=== PATIENT | male | born 1970 | race Caucasian/White ===

== ENCOUNTER 2020-06-02 11:26 | Outpatient (CLI) | payer OTHER, BC, SELFPAY ==
--- NOTE | ~2020-06-02 | XR_ITS ---
XR thoracic spine 2V DATE: 06/02/2020 12:11 INDICATION: Thoracic spine pain TECHNIQUE: AP, lateral, swimmer views COMPARISON: None FINDINGS: There is minimal thoracic scoliosis. No fracture or dislocation or bone destruction. The th oracic pedicles are intact. Thoracic interspaces and vertebral endplates are preserved. No paraspinal soft tissue thickening. IMPRESSION: Minimal scoliosis Reviewed, dictated and finalized at location A. OPATHIC RESIDENT IMPRESSION: Minimal scoliosis
== END 2020-06-02 11:27 | disposition home or self-care (01) ==
LOC: ANHIMG 11:38
PROVIDERS: PCP Family Medicine; Visit Provider Family Medicine
DX: M54.6 Pain in thoracic spine (principal)
CPT/HCPCS: 72070

== ENCOUNTER → 2021-07-24 00:32 | Outpatient (CLI) | payer BC, SELFPAY ==
[2021-07-24 12:02] LABS: SARS-CoV-2 RNA PCR Negative
== END ==
PROVIDERS: PCP Family Medicine; Visit Provider Internal Medicine Gastroenterology
DX: Z01.812 Encounter for preprocedural laboratory examination (principal); Z20.822 Contact with and (suspected) exposure to COVID-19
CPT/HCPCS: C9803; U0003; U0005

== ENCOUNTER 2021-07-27 00:23 | Day surgery (SDC) | payer BC, SELFPAY ==
[2021-04-25 15:47] VITALS: BMI 26.8
[2021-07-12 13:26] VITALS: BMI 26.8
[2021-07-27 06:54] VITALS: BP 114/73; PULSE 97; RESP 17; TEMP 36.7; O2SAT 98
[2021-07-27] MEDS: LACTATED RINGERS 1,000 ML 150 ML IV CONT (07:05)
--- NOTE | 2021-07-27 08:04 | P.PNAN_ITS ---
Anes - Initial Pre Proc Eval Procedure: Operation Date: 07/27/21 08:00 Proposed Procedures p Screening Colonoscopy - Ollie Padilla MD Date/Time: 07/27/21 08:04 Surgeon: Ollie Padilla MD Pre Op Diagnosis: neoplasm screening Patient Data Age: 50 Gender: M Height: 1.73 m Weight: 74.2 kg Last Vital Signs Temp 98.0 F 07/27/21 06:54 Pulse 97 07/27/21 06:54 Resp 17 07/27/21 06:54 BP 114/73 07/27/21 06:54 Pulse Ox 98 07/27/21 06:54 Allergies Allergy/AdvReac Type Severity Reaction Status Date / Time No Known Allergies Allergy Verified 07/27/21 06:53 Home Medications Medication Instructions Recorded Confirmed Type fluticasone propionate 44 2 inh INHALATION BID PRN #10.6 g 04/10/21 07/12/21 Rx mcg/actuation HFA aerosol inhaler Patient hx anesthesia problems: none Family hx anesthesia problems: none Results Review: All pre-operative results and documents have been reviewed as pa rt of the pre-operative evaluation. FOR[facility]LY [facility], [facility] Past Medical History Medical History Chronic back pain Lumbosacral spondylosis with radiculopathy Tobacco dependence due to cigarettes Family History Family History Mother Family history of premature coronary heart disease Father Family history of diabetes mellitus in first degree relative Sibling Family history of diabetes mellitus in first degree relative Social History Social History (Updated 05/22/21 @ 13:56 by Charity Sanchez) Social History: Smoking packs per day: 1.5 Smoking cigarettes per day: 30.0 Years smoked: 30 Smoking pack-years: 45.00 Smoking status: Current every day smoker Tobacco type: cigarettes Second hand tobacco smoke exposure: No Alcohol intake: former Substance use: never Substance use type: does not use Living arrangements: with family Gender identity (if verbalized by the patient): Male Sexual Orientation (if Verbalized by the Patient): Straight or Heterosexual Spiritual care concerns: No Anes - Eval Final PreProcedure Day of Procedure 07/27/21 08:04 Patient weight: normal Heart: regular rate and rhythm Lungs: clear to auscultation Airway: Mallampati scale class II Neurological: alert and oriented Last oral intake: >/= 8 hours ASA classification: II Emergent: no Anesthetic plan: proceed Anesthesia type and monitoring: general GIVS and standard monitoring Results Review: All pre-operative results and documents have been reviewed as part of the pre-operative evaluation. Informed Consent: The patient's anesthetic plan and its attendant risks and benefits were discussed with the patient/family/POA. Questions were solicited and answers provided to the satisfaction of the patient/family/POA.
--- NOTE | 2021-07-27 08:19 | PM.HPGS ---
History of Present Illness History of Present Illness Consent: Risks, benefits, and alternatives have been discussed and questions answered. Patient agrees to proceed with procedure. Chief complaint: neoplasm screening Narrative: Messi Gary is a 50 year old male with first screening colonoscopy Review of Systems Constitutional: Constitutional: Denies headache(s) and Denies weakness Eyes: Eyes: Denies blurry vision ENT: Reports Normal hearing present, Denies headache(s) and Denies neck pain Cardiovascular: Cardiovascular: Denies chest pain and Denies dyspnea Respiratory: Respiratory: Denies dyspnea Gastrointestinal: Gastrointestinal: Reports no additional gastrointestinal complaints Genitourinary: Genitourinary: Denies dysuria Musculoskeletal: Musculoskeletal: Denies neck pain Integumentary/Breasts: Skin/Breast: Denies dry skin Neurologic: Reports Normal hearing present, Denies headache(s) and Denies weakness Psychiatric: Psychiatric: Denies anxiety Endocrine: Endocrine: Denies change in body appearance Hematologic/Lymphatic: Hematologic/Lymphatic: Denies easy bleeding Allergic/Immunologic: Allergic/Immunologic: Denies urticaria PMF Past Medical History Medical History Chronic back pain Lumbosacral spondylosis with radiculopathy Tobacco dependence due to cigarettes Family History Family History Mother Family history of premature coronary heart disease Father Family history of diabetes mellitus in first degree relative Sibling Family history of diabetes mellitus in first degree relative Social History Social History (Updated 05/22/21 @ 13:56 by Charity Sanchez) Social History: Smoking packs per day: 1.5 Smoking cigarettes per day: 30.0 Years smoked: 30 Smoking pack-years: 45.00 Smoking status: Current every day smoker Tobacco type: cigarettes Second hand tobacco smoke exposure: No Alcohol intake: former Substance use: never Substance use type: does not use Living arrangements: with family Gender identity (if verbalized by the patient): Male Sexual Orientation (if Verbalized by the Patient): Straight or Heterosexual Spiritual care concerns: No Meds Home Medications and Allergies Home Medications Medication Instructions Recorded Confirmed Type fluticasone propionate 44 2 inh INHALATION BID PRN #10.6 g 04/10/21 07/12/21 Rx mcg/actuation HFA aerosol inhaler Allergies Allergy/AdvReac Type Severity Reaction Status Date / Time No Known Allergies Allergy Verified 07/27/21 06:53 Vital Signs Vital Signs - 24 hr 07/27/21 06:54 Temperature 98.0 F Pulse Rate 97 Respiratory Rate 17 Blood Pressure 114/73 Pulse Oximetry 98 Exam Const: General: comfortable and no acute distress HENMT: General nose exam: Normal nares present Eyes: General: appearance normal, both eyes and all related structures Neck: Neck: no JVD Resp: Auscultation: clear to auscultation bilaterally Cardio: Rate: regular rate Rhythm: regular rhythm GI: Inspection: non-distended GI Palp: Yes Soft to palpation Skin: General skin exam: normal color Neuro: General: gait normal Speech: normal speech Extrem: General: normal to inspection Psych: Mental Status: mental status grossly normal Assessment and Plan Assessment and plan (1) Colon cancer screening: Code(s): Z12.11 - Encounter for screening for malignant neoplasm of colon Status: Acute Assessment and Plan: colonoscopy
[2021-07-27 08:34] VITALS: BP 97/79; PULSE 85; RESP 19; O2SAT 94
[2021-07-27 08:44] VITALS: BP 100/77; PULSE 87; RESP 17; O2SAT 97
[2021-07-27 08:54] VITALS: BP 117/96; PULSE 73; RESP 15; O2SAT 97
== END 2021-07-27 09:07 | disposition home or self-care (01) ==
PROVIDERS: PCP Family Medicine; Visit Provider Internal Medicine Gastroenterology
PROC: 0DJD8ZZ Inspection of Lower Intestinal Tract, Via Natural or Artificial Opening Endoscopic (ICD-10-PCS; CPT 45378; principal; 2021-07-27 08:00)
DX: Z12.11 Encounter for screening for malignant neoplasm of colon (principal); K64.8 Other hemorrhoids; F17.210 Nicotine dependence, cigarettes, uncomplicated
CPT/HCPCS: 45378; C9803; J2704; J7120; U0003; U0005

== ENCOUNTER 2021-09-24 03:09 | Day surgery (SDC) | payer BC, SELFPAY ==
[2021-09-14 12:03] VITALS: BMI 24.7
--- NOTE | 2021-09-14 12:10 | PC.NURSE ---
Report to the Outpatient Waiting Room, entrance under the green pavilion located off [facility], at time 1330 on date 09/24/21. OR Time: 1430. - You and your visitor will be asked a series of questions to screen for COVID 19 for your protection. - Only one visitor is allowed at this time. - The patient visitor is requested to leave or wait in car when not with patient. - A mask is required within the hospital. MAY HAVE LIGHT BREAKFAST/LUNCH DAY OF SURGERY. Take the following medications with a SIP of water the morning of surgery: PRESCRIBED Medications to discontinue per physician: N/A Date to take last dose: N/A Please no make-up, nail scottish, hairspray, perfume, deodorant, or body powder the day of surgery. No jewelry (including any body piercings) or valuables the day of surgery, leave them at home. Please take a shower or bath the night before, or the morning of, surgery with an antibacterial soap. Wear comfortable, loose fitting clothing. - Jewelry must be removed prior to entering the operating room. Rings and piercings that are not removed may be cut off. - The hospital will not accept responsibility for valuables. - Please leave all valuables, including medications, at home the day of surgery. YOU MAY DRIVE YOURSELF HOME. Follow any additional instructions given to you from your surgeon. If you or anyone in your household have experienced Covid symptoms in the past week, please notify your surgeon or the nurse liaison at the phone number below for possible testing. Telephone instructions given to PT - FLORI THURMAN and asked if any additional questions and then verbalized understanding. Patient advised to call surgeon office or pre surgery nurse liaison [phone] if any additional questions.
[2021-09-24] VITALS (8 sets, daily range): BP systolic 103–137; BP diastolic 61–87; PULSE 68–87; RESP 16–18; TEMP 36.9; O2SAT 98–100
--- NOTE | 2021-09-24 14:02 | WPDHPUPDATE1 ---
History and Physical Update Update Date/Time: 09/24/21 14:02 History and Physical has been reviewed, including an updated exam of the patient. There are NO changes in the patient's condition. Risks, benefits, and alternatives have been discussed and questions answered. Patient agrees to proceed with procedure.
[2021-09-24] MEDS: LIDO 1%/EPINEPHRINE/PF 1:200,000 30 ML VIAL XX (15:11)
--- NOTE | 2021-09-24 15:27 | W.PM.PROC2 ---
Procedure Note - Detailed Date of Procedure 09/24/21 Pre-op Diagnosis Right forearm mass x3, left forearm mass x2 Post-op Diagnosis Same Procedure Performed 1. Excision of 3.5 cm, 3 cm, and 1.5 cm right forearm masses 2. Excision of 2 cm and 1.8 cm left forearm masses Surgeon Johnathon English, DO Anesthesia Local (1% lidocaine with epinephrine) Indications This is a 51-year-old man who presented with multiple masses on his arms. These have grown slowly over time and do cause some occasional discomfort when he is putting pressure on them. He denies any redness or drainage. All the masses appeared to be subcutaneous soft tissue masses consistent with lipomas. Discussion was made with the patient about treatment options and decision was made to proceed with excision right forearm mass x3 and left forearm mass x2. Findings All of the masses were excised with separate incisions. Patient was found to have a 3.5 cm, 3 cm, and 1.5 cm mass on the right forearm. He was also found to have a 2.0 cm and 1.8 cm mass on the left forearm. All masses were completely excised intact and sent to the lab for pathology. Subcuticular closure was then performed followed by glue. Description of Procedure Procedure as well as risks, benefits, and alternatives were discussed with the patient. Written consent was obtained and placed in chart prior to procedure. Patient was brought back to surgical suite. He was placed supine operating table. His bilateral arm regions were prepped and draped in sterile fashion using chlorhexidine prep. 1% lidocaine with epinephrine was infiltrated locally over each of the masses. A 3.5 cm incision was made over the right forearm mass using a 15 blade scalpel. Electrocautery was used for hemostasis and for dissection of the mass free from the subcutaneous attachments. The mass was completely excised intact and sent to the lab for pathology. The skin edges were then reapproximated using 4-0 Monocryl subcuticular suture. A 3 cm incision was then made over the 2nd right forearm mass and electrocautery was used to excise the mass completely intact. The skin edges were then reapproximated using 4-0 Monocryl subcuticular suture. A 1.5 cm incision was then made over the 3rd right forearm mass and electrocautery was used to completely excise the mass intact. The skin edges were approximated using 4-0 Monocryl subcuticular suture. Exofin glue was then applied over each of the right forearm incisions. I then moved my attention over to the left forearm. A 2 cm incision was made directly over the left forearm mass using a 15 blade scalpel. Electrocautery was used for hemostasis and for excision of the mass completely intact. Mass was sent to the for pathology. The skin edges were then reapproximated using 4-0 Monocryl subcuticular suture. A 1.8 cm incision was then made over the 2nd left forearm mass and electrocautery was used to excise the mass completely intact. The skin edges were then reapproximated using 4-0 Monocryl running subcuticular suture. Exofin glue was then applied over each of the incisions. No other abnormalities were noted and all masses were completely excised. The patient was then transferred to recovery. Estimated Blood Loss 5 Pathology Yes (Right forearm mass x3, left forearm mass x2) Complications No immediate complications Condition Stable Disposition Same day [facility] Billing Surgery - Charge Forward: Surgery Billing
== END 2021-09-24 15:55 | disposition home or self-care (01) ==
PROVIDERS: PCP Family Medicine; Visit Provider Surgery
PROC: (CPT 25071; principal; 2021-09-24 14:30)
DX: R22.33 Localized swelling, mass and lump, upper limb, bilateral (principal); F17.200 Nicotine dependence, unspecified, uncomplicated
CPT/HCPCS: 25071; 88304; A9270

== ENCOUNTER 2021-12-24 15:24 | Outpatient (CLI) | payer BC, SELFPAY ==
--- NOTE | ~2021-12-24 | XR_ITS ---
XR lumbar spine 2-3V DATE: 12/24/2021 16:00 INDICATION: Back pain with radiculopathy. Lumbosacral surgery at L3-L5 in 2020 TECHNIQUE: AP, lateral and coned lateral lumbosacral views COMPARISON: None FINDINGS: Status post anterior and interbody spinal fusion at L3-L5. There is minimal grade 1 anterolisthesis at L4-5. L1-2, L2-3 and L5-S1 interspaces appear well preserved. No fracture or bone destruction is evident. The sacroiliac joints are intact. IMPRESSION: Status post anterior and interbody spinal fusion at L3-L5 Reviewed, dictated and finalized at location B.
--- NOTE | ~2021-12-24 | XR_ITS ---
XR thoracic spine 2V DATE: 12/24/2021 15:59 INDICATION: Mid back pain for one week with popping. No injury. TECHNIQUE: AP, lateral views COMPARISON: None FINDINGS: Minimal dextro scoliosis. No fracture or dislocation or bone destruction. The thoracic pedi cles are intact. No paraspinal soft tissue thickening. IMPRESSION: Minimal dextroscoliosis Reviewed, dictated and finalized at location B. IMPRESSION: Minimal dextroscoliosis
== END 2021-12-24 15:25 | disposition home or self-care (01) ==
LOC: ANHIMG 15:32
PROVIDERS: PCP Family Medicine; Visit Provider Physician Assistant
DX: M47.27 Other spondylosis with radiculopathy, lumbosacral region (principal); Z98.1 Arthrodesis status
CPT/HCPCS: 72070; 72100

== ENCOUNTER → 2021-12-28 09:41 | Outpatient (CLI) | payer BC, SELFPAY ==
--- NOTE | ~2021-12-28 | CT_ITS ---
EXAMINATION: CT lung screening DATE: 12/28/2021 09:52 INDICATION: Personal history of tobacco dependence. Lung cancer screening. TECHNIQUE: Computed tomography (CT) of the chest was performed without intravenous contrast. The dose -length product was 101.79 mGy-cm. Automated exposure control and iterative reconstruction technique were employed. COMPARISON: CT dated 02/14/2018 FINDINGS: Heart size is normal. No significant pleural or pericardial effusion. Mild atherosclerosis. No lymphadenopathy. There is right upper and lower lobe atelectasis. There is emphysema. No endobron chial lesions. Calcified granuloma in the left upper lobe anteriorly. No pneumothorax. No endobronchi al lesions. The upper abdomen is unremarkable. There is a 2 mm left upper lobe nodule. No acute osseo us abnormality. IMPRESSION: 1. Lung-RADS category 2: Benign appearance or behavior. Continue annual screening with noncontrast lo w-dose chest CT in 12 months. Reviewed, dictated and finalized at location A. IMPRESSION: 1. Lung-RADS category 2: Benign appearance or behavior. Continue annual screeni ng with noncontrast low-dose chest CT in 12 months.
== END ==
PROVIDERS: PCP Family Medicine; Visit Provider Physician Assistant
DX: Z12.2 Encounter for screening for malignant neoplasm of respiratory organs (principal); Z87.891 Personal history of nicotine dependence
CPT/HCPCS: 71271

== ENCOUNTER 2022-01-11 09:13 | Outpatient (CLI) | payer BC, SELFPAY ==
[2022-01-11 09:40] LABS: Basophils Absolute Auto 0.1 K/mm3 (0.0-0.1); Basophils Percent Auto 0.5 % (0.2-1.2); Eosinophils Absolute Auto 0.2 K/mm3 (0-0.3); Eosinophils Percent Auto 1.8 % (0-4.4); Hematocrit 46.8 % (42.0-52.0); Hemoglobin 15.7 g/dL (14.0-18.0); Immature Granulocyte Absolute 0.04 K/mm3 (0.00-0.031); Immature Granulocyte Percent A 0.4 % (0-0.5); Lymphocytes Absolute Auto 2.16 K/mm3 (0.9-3.2); Lymphocytes Percent Auto 20.4 % (18.3-44.2); Mean Corpuscular HGB Conc 33.5 g/dl (32-36); Mean Corpuscular Hemoglobin 32.4 pg (26-34); Mean Corpuscular Volume 96.7 fl (80-100); Mean Platelet Volume 9.8 fl (7.4-10.4); Monocytes Absolute Auto 0.7 K/mm3 (0.1-0.6); Monocytes Percent Auto 6.5 % (2.6-8.5); Neutrophils Absolute Auto 7.5 K/mm3 (1.3-6.7); Neutrophils Percent Auto 70.4 % (45.5-73.1); Platelet Count Result 240 k/mm3 (150-375); Red Blood Count 4.84 M/mm3 (4.6-6.20); Red Cell Distribution Width 13.4 % (11.5-14.5); White Blood Count 10.6 K/mm3 (4.5-10.0)
[2022-01-14 19:32] LABS: PSA, Free 0.27 ng/mL; PSA, Total 0.7 ng/mL (<=4.0)
== END 2022-01-11 09:14 | disposition home or self-care (01) ==
LOC: ANHLAB 09:14
PROVIDERS: PCP Family Medicine; Visit Provider Physician Assistant
DX: D72.829 Elevated white blood cell count, unspecified (principal); Z12.5 Encounter for screening for malignant neoplasm of prostate
CPT/HCPCS: 36415; 84153; 84154; 85025

== ENCOUNTER 2022-10-21 17:03 | Outpatient (CLI) | payer BC, SELFPAY ==
--- NOTE | ~2022-10-21 | XR_ITS ---
EXAM: XR finger 3rd LT min 2V DATE: 10/21/2022 17:24 HISTORY: r/o foreign body, osteomyelitis . COMPARISON: None available. FINDINGS: Normal mineralization. No fracture or dislocation. No lytic or blastic lesion. Joint space s are maintained. Very subtle erosion and loss of the cortical line in the periarticular region of th e distal and lateral aspect of the third proximal phalange. Punctate rounded radiopacity projecting o jax the nail of the left fourth digit may represent a small foreign body or external debris. Possible mild soft tissue swelling over the left third PIP joint. IMPRESSION: Findings concerning for early osteomyelitis involving the periarticular region of the dis matt and lateral aspect of the third proximal phalange, with overlying soft tissue swelling. Septic ar thritis of the third PIP joint should also be considered. Consider orthopedic referral and MRI of the hand with and without contrast for further evaluation. Punctate, rounded hyperdensity projecting over the nail of the fourth digit may represent a foreign b eben or external debris. Reviewed, dictated and finalized at location K. IMPRESSION: Findings concerning for early osteomyelitis involving the periartic ular region of the distal and lateral aspect of the third proximal phalange, wi th overlying soft tissue swelling. Septic arthritis of the third PIP joint shou ld also be considered. Consider orthopedic referral and MRI of the hand with an d without contrast for further evaluation. Punctate, rounded hyperdensity projecting over the nail of the fourth digit may represent a foreign body or external debris.
== END 2022-10-21 17:04 | disposition home or self-care (01) ==
PROVIDERS: PCP Family Medicine; Visit Provider Physician Assistant
DX: S69.92XA Unspecified injury of left wrist, hand and finger(s), initial encounter (principal); X58.XXXA Exposure to other specified factors, initial encounter
CPT/HCPCS: 73140

== ENCOUNTER 2022-10-21 21:11 | Emergency (ER) | payer BC, SELFPAY ==
[2022-10-21 21:18] VITALS: BP 138/94; PULSE 67; RESP 16; TEMP 36.3; O2SAT 99
--- NOTE | 2022-10-21 22:23 | ED.GENADULT ---
HPI - General Adult General Chief complaint: Extremity Injury, Upper Stated complaint: l 3rd digit infection Time Seen by Provider: 10/21/22 21:42 Source: patient Mode of arrival: ambulatory Limitations: no limitations History of Present Illness HPI narrative: This is a 52-year-old male who presents to the ED with chief complaint of a left middle finger injury and pain onset 3 days ago. Patient states he was drilling through metal in his garage when he accidentally drilled a hole through his middle finger. He has had pain ever since and saw his primary care doctor today. They ordered an x-ray and it showed concerning evidence of osteomyelitis so he was told to come to the ER. Denies any further site of pain or injury. Denies fevers, chills, nausea, vomiting or systemic symptoms Related Data Allergies Allergy/AdvReac Type Severity Reaction Status Date / Time atorvastatin AdvReac Intermediate Nausea Uncoded 10/21/22 16:18 [facility] Past Medical History Medical History Chronic back pain Lumbosacral spondylosis with radiculopathy Tobacco dependence due to cigarettes Surgical History Surgical History H/O breast surgery H/O foot surgery H/O wrist surgery History of back surgery History of excision of lesion 09/24/21 1. Excision of 3.5 cm, 3 cm, and 1.5 cm right forearm masses 2. Excision of 2 cm and 1.8 cm left forearm masses Family History Family History Mother Family history of premature coronary heart disease Heart disease Father Lung disease Diabetes mellitus Sibling Family history of diabetes mellitus in first degree relative Social History Social History Social History: Smoking packs per day: 1.5 Smoking cigarettes per day: 30.0 Years smoked: 30 Smoking pack-years: 45.00 Smoking status: Current every day smoker Tobacco type: cigarettes Second hand tobacco smoke exposure: No Alcohol intake: never Substance use: never Substance use type: does not use Living arrangements: with family Occupation/Education: occupation Gender identity (if verbalized by the patient): Male Sexual Orientation (if Verbalized by the Patient): Straight or Heterosexual Spiritual care concerns: No Exam Narrative: GENERAL: Well-appearing, well-nourished, and in no acute distress. HEAD: Normocephalic, atraumatic. EYES: PERRLA and EOMI. ENT: Nares clear, no rhinorrhea or epistaxis. Mucous membranes moist. Oropharynx without tonsillar hypertrophy exudate or other lesions. NECK: Supple. No adenopathy or masses. CHEST: No respiratory distress. Clear to auscultation. No wheezes rales or rhonchi HEART: Regular rate and rhythm. No murmur heard. Normal peripheral pulses. ABDOMEN: Soft, nontender, nondistended, normal active bowel sounds. MSK: Right hand: Benign Left hand: There are 2 lesions to the radial and dorsal middle finger near the PIP. Moderately reduced active range of motion due to pain. Moderate tenderness throughout the middle finger. No swelling. Neurovascularly intact distally. SKIN: Warm, dry, no rash. No bruising or erythema. NEURO: Alert and oriented x3. No focal deficits. PSYCH: Normal mood and affect. Course Vital Signs Vital signs: Vital Signs Temperature 97.3 F L 10/21/22 21:18 Pulse Rate 67 10/21/22 21:18 Respiratory Rate 16 10/21/22 21:18 Blood Pressure 138/94 H 10/21/22 21:18 Pulse Oximetry 99 10/21/22 21:18 Oxygen Delivery Room Air 10/21/22 21:18 Temperature 97.3 F L 10/21/22 21:18 Pulse Rate 78 10/22/22 01:14 Respiratory Rate 18 10/22/22 01:14 Blood Pressure 126/87 10/22/22 01:14 Pulse Oximetry 97 10/22/22 01:14 Oxygen Delivery Room Air 10/21/22 21:18 Medical Decision Making MDM Narr
[2022-10-21] MEDS: ONDANSETRON INJ 4 MG/2 ML VIAL IV PUSH (22:42)
[2022-10-21 22:43] VITALS: BP 118/80; PULSE 62; RESP 14; O2SAT 97
[2022-10-21] MEDS: SODIUM CHLORIDE 0.9% IV 1,000 ML 999 ML IV CONT (22:43)
[2022-10-21 22:52] LABS: Basophils Absolute Auto 0.1 K/mm3 (0.0-0.1); Basophils Percent Auto 0.8 % (0.2-1.2); Eosinophils Absolute Auto 0.2 K/mm3 (0-0.3); Eosinophils Percent Auto 2.8 % (0-4.4); Hematocrit 40.4 % (42.0-52.0); Hemoglobin 13.5 g/dL (14.0-18.0); Immature Granulocyte Absolute 0.02 K/mm3 (0.00-0.031); Immature Granulocyte Percent A 0.2 % (0-0.5); Lymphocytes Absolute Auto 2.67 K/mm3 (0.9-3.2); Lymphocytes Percent Auto 32.4 % (18.3-44.2); Mean Corpuscular HGB Conc 33.4 g/dl (32-36); Mean Corpuscular Hemoglobin 31.8 pg (26-34); Mean Corpuscular Volume 95.1 fl (80-100); Monocytes Absolute Auto 0.8 K/mm3 (0.1-0.6); Monocytes Percent Auto 9.6 % (2.6-8.5); Neutrophils Absolute Auto 4.5 K/mm3 (1.3-6.7); Neutrophils Percent Auto 54.2 % (45.5-73.1); Platelet Count Result 221 k/mm3 (150-375); Red Blood Count 4.25 M/mm3 (4.6-6.20); Red Cell Distribution Width 13.2 % (11.5-14.5); White Blood Count 8.3 K/mm3 (4.5-10.0)
[2022-10-21 23:07] LABS: Alanine Aminotransferase 15 U/L (6-50); Albumin Level 3.7 g/dL (3.5-5.1); Alkaline Phosphatase 81 U/L (38-126); Anion Gap 5 mmol/L (8-16); Aspartate Amino Transferase 18 U/L (17-59); Bilirubin,Total 0.3 mg/dL (0.2-1.3); Blood Urea Nitrogen 16 mg/dL (9-20); CRP < 0.5 mg/dL (<1.0); Calcium 8.7 mg/dL (8.4-10.2); Carbon Dioxide 26 mmol/L (22-30); Chloride 107 mmol/L (98-107); Estimated CRCL calculation 84 ml/min; Estimated Glomerular Filt Rate > 60; Glucose 121 mg/dL (65-110); Potassium 3.6 mmol/L (3.4-5.0); Sodium 138 mmol/L (137-145)
[2022-10-21] MEDS: MORPHINE SULFATE (*CRX) 4 MG/ML INJ IV PUSH (23:47)
[2022-10-22] MEDS: DOXYCYCLINE 100 MG/NS 100 ML 100 MG/100 ML BAG IVPB (00:08)
[2022-10-22 01:14] VITALS: BP 126/87; PULSE 78; RESP 18; O2SAT 97
== END 2022-10-22 01:15 | disposition home or self-care (01) ==
PROVIDERS: Emergency Provider Physician Assistant; PCP Family Medicine
DX: M86.142 Other acute osteomyelitis, left hand (principal); F17.210 Nicotine dependence, cigarettes, uncomplicated
CPT/HCPCS: 36415; 73140; 80053; 85025; 86140; 96361; 96365; 96375; 99284; J2270; J2405; J7030

== ENCOUNTER 2022-12-30 07:07 | Outpatient (CLI) | payer BC, SELFPAY ==
--- NOTE | ~2022-12-30 | CT_ITS ---
EXAMINATION: CT lung screening DATE: 12/30/2022 07:42 INDICATION: Current tobacco use TECHNIQUE: Computed tomography (CT) of the chest was performed without intravenous contrast. The dose -length product was 102.34 mGy-cm. Automated exposure control and iterative reconstruction technique were employed. COMPARISON: CT dated 12/28/2021 FINDINGS: No thoracic lymphadenopathy. There is mild atherosclerosis of the aorta and coronary arteri es. No mediastinal lymphadenopathy. No significant pleural or pericardial effusion. There is emphysem a. Calcified granuloma left upper lobe anteriorly at the pleural surface. Right lower lobe atelectasi s. 2 mm left upper lobe nodule unchanged. There are a few additional scattered calcified granulomas o f the lungs. No endobronchial lesions. IMPRESSION: 1. Lung-RADS category 2: Benign appearance or behavior. Continue annual screening with noncontrast lo w-dose chest CT in 12 months. Reviewed, dictated and finalized at location B. IMPRESSION: 1. Lung-RADS category 2: Benign appearance or behavior. Continue annual screeni ng with noncontrast low-dose chest CT in 12 months.
== END 2022-12-30 07:08 | disposition home or self-care (01) ==
LOC: ANHIMG 07:12
PROVIDERS: PCP Family Medicine; Visit Provider Physician Assistant
DX: Z12.2 Encounter for screening for malignant neoplasm of respiratory organs (principal); Z87.891 Personal history of nicotine dependence
CPT/HCPCS: 71271

== ENCOUNTER 2023-12-29 17:23 | Outpatient (CLI) | payer BC, SELFPAY ==
--- NOTE | ~2023-12-29 | XR_ITS ---
EXAMINATION: XR tibia fibula LT 2V, XR ankle LT 2V DATE: 12/29/2023 17:39 INDICATION: Anterior and medial left ankle pain and swelling TECHNIQUE: 1. Anteroposterior and lateral views of the left tibia and fibula were obtained. 2. Anteroposterior and lateral views of the left ankle were obtained. COMPARISON: None. FINDINGS: Bone alignment is normal. Joint space at the left knee, ankle and visualized foot are normal. Soft ti ssues are unremarkable with no left knee or ankle joint effusions. IMPRESSION: 1. Negative left tibia/fibula and ankle radiographs. Reviewed, dictated and finalized at location A. IMPRESSION: 1. Negative left tibia/fibula and ankle radiographs.
== END 2023-12-29 17:24 | disposition home or self-care (01) ==
PROVIDERS: PCP Family Medicine; Visit Provider Student in an Organized Health Care Education/Training Program
DX: M79.662 Pain in left lower leg (principal); M79.89 Other specified soft tissue disorders
CPT/HCPCS: 73590; 73600

== ENCOUNTER 2024-03-08 16:17 | Outpatient (CLI) | payer BC, SELFPAY ==
[2024-03-08 16:41] LABS: Hematocrit 44.1 % (42.0-52.0); Mean Corpuscular Hemoglobin 32.1 pg (26-34); Mean Corpuscular Volume 94.2 fl (80-100); Mean Platelet Volume 10.1 fl (7.4-10.4); Platelet Count Result 260 k/mm3 (150-375); Red Blood Count 4.68 M/mm3 (4.6-6.20); Red Cell Distribution Width 13.1 % (11.5-14.5); White Blood Count 10.4 K/mm3 (4.5-10.0)
[2024-03-08 16:55] LABS: Alanine Aminotransferase 17 U/L (6-50); Albumin Level 4.4 g/dL (3.5-5.1); Alkaline Phosphatase 107 U/L (38-126); Anion Gap 5 mmol/L (4-12); Aspartate Amino Transferase 24 U/L (17-59); Bilirubin,Total 0.4 mg/dL (0.2-1.3); Blood Urea Nitrogen 20 mg/dL (9-20); Calcium 9.1 mg/dL (8.4-10.2); Carbon Dioxide 26 mmol/L (22-30); Chloride 106 mmol/L (98-107); Estimated Glomerular Filt Rate > 60; Glucose 88 mg/dL (65-110); Potassium 4.2 mmol/L (3.4-5.0); Sodium 137 mmol/L (137-145)
[2024-03-08 17:04] LABS: Troponin I < 0.012 ng/mL (0.000-0.034)
== END 2024-03-08 16:18 | disposition home or self-care (01) ==
LOC: ANHLAB 16:18
PROVIDERS: PCP Family Medicine; Visit Provider Physician Assistant
DX: R07.9 Chest pain, unspecified (principal); I25.10 Atherosclerotic heart disease of native coronary artery without angina pectoris; E78.5 Hyperlipidemia, unspecified
CPT/HCPCS: 36415; 80053; 84484; 85027